=== PATIENT | female | born 1990 | race Caucasian/White ===

== ENCOUNTER → 2020-11-29 14:35 | Outpatient (BNVA) | payer SELFPAY | PROVIDERS: PCP Nurse Practitioner; Visit Provider Nurse Practitioner Women's Health | DX: N93.9 Abnormal uterine and vaginal bleeding, unspecified (principal); Z12.4 Encounter for screening for malignant neoplasm of cervix; R10.2 Pelvic and perineal pain | CPT/HCPCS: 84443; 84702; 88175 ==

== ENCOUNTER → 2020-12-03 10:33 | Outpatient (BNVA) | payer SELFPAY | PROVIDERS: PCP Nurse Practitioner; Visit Provider Obstetrics & Gynecology | DX: N93.9 Abnormal uterine and vaginal bleeding, unspecified (principal); R10.2 Pelvic and perineal pain | CPT/HCPCS: 76830 ==

== ENCOUNTER → 2021-06-13 16:40 | Outpatient (BNVA) | payer SELFPAY | PROVIDERS: PCP Nurse Practitioner; Visit Provider Family Medicine | DX: J02.9 Acute pharyngitis, unspecified (principal) | CPT/HCPCS: 87071; 87880 ==

== ENCOUNTER 2024-06-28 05:28 | Inpatient (IN) | payer MEDICAID, SELFPAY ==
[2024-06-28] VITALS (15 sets, daily range): BP systolic 126–154; BP diastolic 70–93; PULSE 74–99; RESP 16; TEMP 36.1–36.8; O2SAT 98–100; BMI 29.7
[2024-06-28 06:14] LABS: Basophils % 0.2 %; Eosinophils % 0.4 %; Hematocrit 35.5 % (36-47); Lymphocytes # 1.5 10^3/uL (0.8-4.8); Lymphocytes % 15.9 %; Mean Corpuscular HGB Conc 32.1 g/dL (30-55); Mean Corpuscular Hemoglobin 28.2 pg (27-33); Mean Corpuscular Volume 87.9 fl (85-98); Mean Platelet Volume 11.6 fL (7.4-10.4); Monocytes # 0.8 10^3/uL (0.2-0.9); Monocytes % 8.2 %; Neutrophils # 7.16 10^3/uL (1.8-7.7); Nucleated Red Blood Cells % 0 %; Platelet Count 212 10^3/cmm (157-399); Red Blood Count 4.04 10^6/uL (3.85-5.65); Red Cell Distribution Width 15.8 % (12.1-15.1); White Blood Count 9.55 10^3/uL (3.29-11.43)
--- NOTE | 2024-06-28 08:06 | PM.OPHPUD ---
Labor & Delivery H&P Update Date of Procedure: June 28, 2024 Date H&P Performed: 06/23/24 Changes to previous documentation: Cervix dilated to 4 cm on upon admission to the hospital Admission Diagnosis: 34-year-old 2 para 1-0-0-1 at 40 weeks estimated gestational age Other information: The patient had an unremarkable . Her labs were also unremarkable. Her blood type is O+. Her antibody screen was negative. Her glucose screen was passed. She is rubella nonimmune. She is GBS negative. The remainder of her infectious disease profile was within normal limits. Related Problem List Diagnoses (1) 40 weeks gestation of : A&P Assessment and plan (1) 40 weeks gestation of : I anticipate routine labor and vaginal delivery. Status: Acute
--- NOTE | 2024-06-28 09:08 | PM.DELIVERY ---
Delivery Note: Date of delivery: June 28, 2024 Pre-delivery diagnoses: 34-year-old 4 para 1-0-2-1 at 40 weeks presenting in active labor. Post-delivery diagnoses: Status post vacuum-assisted vaginal delivery Procedure: Vacuum-assisted vaginal delivery Delivering Physician: Ifeanyi Reid Estimated blood loss (mL): 100 Pre-Delivery Course: The patient presented to the hospital in active labor. She progressed to complete without difficulty. Delivery: DELIVERY: The patient progressed to complete without difficulty. As the patient was pushing, heart tones began to demonstrate decelerations. As a result the vacuum was used to assist in delivery. It was used during 1 contraction. There were no pop-off's. She ended up having persistent she delivered a female with a weight of 7 pounds 5 ounces with Apgars of 7, 9. The baby was delivered from the ERIC position and placed on the mother's abdomen. The cord was then clamped and cut. There was a nuchal cord x 1 which was easily reduced prior to delivery of the shoulders. There was no meconium. The placenta and 3 vessel cord were delivered intact shortly thereafter. The perineum and vaginal vault were carefully examined. No lacerations were noted. Both the mother and the baby were in stable condition. History History History 4 Term 1 0 Miscarriages/Ectopic 2 Living Children 1 A&P Assessment and plan (1) 40 weeks gestation of : I anticipate routine care. (2) Vacuum-assisted vaginal delivery: Coding Level of Care Code Acute Code for Chg Fwd Diagnoses 40 weeks gestation of Z3A.40 Vacuum-assisted vaginal delivery Z37.9
[2024-06-28] MEDS: dextrose 5%-lactated ringers 1,000 ML 125 ML IV (09:35)
[2024-06-28] MEDS: oxytocin 30 UNIT/500 ML BAG 600 UNIT IV (09:36)
[2024-06-28] MEDS: lidocaine 2% INJ 20 mL INJECTION (09:36)
--- NOTE | 2024-06-28 11:54 | PC.NURSE ---
Moved to room.
[2024-06-28] MEDS: benzocaine-menthol 78 gm Canister 1 SPRAY TOPICAL (13:19)
[2024-06-28] MEDS: ibuprofen 800 mg tablet PO ×2 (14:32→21:42)
[2024-06-28] MEDS: docusate sodium 100 mg Capsule PO (17:51)
[2024-06-28 18:39] LABS: Basophils % 0.2 %; Eosinophils % 0.2 %; Hematocrit 30.8 % (36-47); Lymphocytes # 1.1 10^3/uL (0.8-4.8); Lymphocytes % 9.1 %; Mean Corpuscular HGB Conc 32.1 g/dL (30-55); Mean Corpuscular Hemoglobin 28.1 pg (27-33); Mean Corpuscular Volume 87.5 fl (85-98); Mean Platelet Volume 11.2 fL (7.4-10.4); Monocytes # 0.9 10^3/uL (0.2-0.9); Neutrophils # 10.22 10^3/uL (1.8-7.7); Neutrophils % 83.3 %; Nucleated Red Blood Cells % 0 %; Platelet Count 199 10^3/cmm (157-399); Red Blood Count 3.52 10^6/uL (3.85-5.65); Red Cell Distribution Width 15.9 % (12.1-15.1); White Blood Count 12.28 10^3/uL (3.29-11.43)
[2024-06-28] MEDS: acetaminophen 500 mg Tablet PO (18:48)
[2024-06-28 18:55] LABS: Alanine Aminotransferase 12 U/L (0-33); Albumin Level 3.1 g/dL (3.5-5.2); Alkaline Phosphatase 182 U/L (35-105); Anion Gap 14.9 (5-19); Aspartate Amino Transferase 27 U/L (0-32); Blood Urea Nitrogen 9 mg/dL (6-20); Calcium 8.6 mg/dL (8.5-10.5); Carbon Dioxide 21 mmol/L (22-29); Chloride 104 mmol/L (98-107); Creatinine Clr Calc Pharmacy 146.3386; Globulin 3.2 g/dL (1.3-4.6); Glomerular Filtration Rate 115.1 mL/min (90-130); Glucose 111 mg/dL (65-115); Osmolality Calculated 281 mOsm/kg (285-295); Potassium 3.9 mmol/L (3.5-5.1); Sodium 136 mmol/L (136-145); Total Bilirubin 0.2 mg/dL (0.15-1.2); Total Protein 6.3 g/dL (6.6-8.7); Uric Acid 4.2 mg/dL (2.4-5.7)
[2024-06-29 04:35] VITALS: BP 120/80; PULSE 99; RESP 16; TEMP 36.8
--- NOTE | 2024-06-29 07:51 | PM.OBGYDC ---
Discharge Providers PROCUREMENT REPRESENTATIVE Date of Admission: 06/28/24 05:28 Date of Discharge: 06/29/24 Attending Provider at Admission: Ifeanyi Reid MD Attending Provider at Discharge: Ifeanyi Reid MD Primary Care Provider: LAQUITA Barnes Diagnoses at Discharge Discharge Diagnosis (1) 40 weeks gestation of : Status: Acute (2) Vacuum-assisted vaginal delivery: Status: Acute Reason for Visit Reason for Visit: Contractions Hospital Course Hospital Course The patient presented to the hospital in active labor. She had spontaneous rupture membranes. She progressed complete without difficulty. During her pushing process heart tones had some long decelerations. As result a vacuum was used. The baby was delivered while using the vacuum during 1 contraction. She had a second-degree posterior midline tear which was repaired in usual fashion. Her course was unremarkable. Her bleeding was within normal limits. She did have a couple of blood pressures that were elevated. They resolved without intervention. She breast-fed well. Her pain was well-controlled. Information Peripartum Data: Infant Delivery Method: Vaginal Physical Exam Narrative: The patient is alert. She appears comfortable. Her heart has a regular rate and rhythm with no murmurs appreciated. Lungs are clear to auscultation bilaterally. Her fundus is firm and below the umbilicus. History History History 4 Term 1 0 Miscarriages/Ectopic 2 Living Children 1 Discharge Data Studies Completed and Pending Laboratory Results WBC 12.28 10^3/uL (3.29-11.43) H 06/28/24 18:30 RBC 3.52 10^6/uL (3.85-5.65) L 06/28/24 18:30 Hgb 9.90 g/dL (11.27-16.99) L 06/28/24 18:30 Hct 30.8 % (36-47) L 06/28/24 18:30 MCV 87.5 fl (85-98) 06/28/24 18:30 MCH 28.1 pg (27-33) 06/28/24 18:30 MCHC 32.1 g/dL (30-55) 06/28/24 18:30 RDW 15.9 % (12.1-15.1) H 06/28/24 18:30 Plt Count 199 10^3/cmm (157-399) 06/28/24 18:30 MPV 11.2 fL (7.4-10.4) H 06/28/24 18:30 Neut % (Auto) 83.3 % 06/28/24 18:30 Lymph % (Auto) 9.1 % 06/28/24 18:30 [place] % (Auto) 7.0 % 06/28/24 18:30 Eos % (Auto) 0.2 % 06/28/24 18:30 Baso % (Auto) 0.2 % 06/28/24 18:30 Neut # (Auto) 10.22 10^3/uL (1.8-7.7) H 06/28/24 18:30 Lymph # (Auto) 1.1 10^3/uL (0.8-4.8) 06/28/24 18:30 [place] # (Auto) 0.9 10^3/uL (0.2-0.9) 06/28/24 18:30 Eos # (Auto) 0.0 10^3/uL (0.0-0.8) 06/28/24 18:30 Baso # (Auto) 0.0 10^3/uL (0.0-0.1) 06/28/24 18:30 Nucleated RBC % (auto) 0 % 06/28/24 18: Nucleated RBCs # 0.0 /100WBC 06/28/24 18:30 Sodium 136 mmol/L (136-145) 06/28/24 18:30 Potassium 3.9 mmol/L (3.5-5.1) 06/28/24 18:30 Chloride 104 mmol/L (98-107) 06/28/24 18:30 Carbon Dioxide 21 mmol/L (22-29) L 06/28/24 18:30 Anion Gap 14.9 (5-19) 06/28/24 18:30 BUN 9 mg/dL (6-20) 06/28/24 18:30 Creatinine 0.6 mg/dL (0.5-0.9) 06/28/24 18:30 GFR Calculation 115.1 mL/min (90-130) 06/28/24 18:30 Glucose 111 mg/dL (65-115) 06/28/24 18:30 Calculated Osmolality 281 mOsm/kg (285-295) L 06/28/24 18:30 Uric Acid 4.2 mg/dL (2.4-5.7) 06/28/24 18:30 Calcium 8.6 mg/dL (8.5-10.5) 06/28/24 18:30 Total Bilirubin 0.2 mg/dL (0.15-1.2) 06/28/24 18:30 AST 27 U/L (0-32) 06/28/24 18:30 ALT 12 U/L (0-33) 06/28/24 18:30 Alkaline Phosphatase 182 U/L (35-105) H 06/28/24 18:30 Total Protein 6.3 g/dL (6.6-8.7) L 06/28/24 18:30 Albumin 3.1 g/dL (3.5-5.2) L 06/28/24 18:30 Globulin 3.2 g/dL (1.3-4.6) 06/28/24 18:30 Urine Color Cancelled 06/28/24 20:07 Urine Appearance Cancelled 06/28/24 20:07 Urine pH Cancelled 06/28/24 20:07 Ur Specific [place] Cancelled 06/28/24 20:07 Urine Protein Cancelled 06/28/24 20:07 Urine Glucose (UA) Cancelled 06/28/24 20:07 Urine Ketones Cancelled 06/28/24 20:07 Urine Blood Cancelled 06/28/24 20:07 Urine Nitrate Cancelled 06/28/24 20:07 Urine Bilirubin Cancelled 06/28/24 20:07 Prot Sulfosalicylic Acd Cancelled 06/28/24 20:07 Urine Urobilinogen Cancelled 06/28/24 20:07 Ur Leukocyte Esterase Cancelled 06/28/24 20:07 Urine RBC Cancelled 06/28/24 20:07 Urine WBC Cancelled 06/28/24 20:07 Ur Squamous Epith Cells Cancelled 06/28/24 20:07 Ur Transition Epith Cell Cancelled 06/28/24 20:07 Ur Renal Epithelial Cell Cancelled 06/28/24 20:07 Calcium Oxalate Crystal Cancelled 06/28/24 20:07 Uric Acid Crystals Cancelled 06/28/24 20:07 Triple Phos Crystals Cancelled 06/28/24 20:07 Other Crystals Cancelled 06/28/24 20:07 Amorphous Sediment Cancelled 06/28/24 20:07 Urine Bacteria Cancelled 06/28/24 20:07 Hyaline Casts Cancelled 06/28/24 20:07 Fine Granular Casts Cancelled 06/28/24 20:07 Coarse Granular Casts Cancelled 06/28/24 20:07 RBC Casts Cancelled 06/28/24 20:07 Other Casts Cancelled 06/28/24 20:07 Urine Mucus Cancelled 06/28/24 20:07 Urine Trichomonas Cancelled 06/28/24 20:07 Urine Yeast Cancelled 06/28/24 20:07 Urine Sperm Cancelled 06/28/24 20:07 Ur Oval Fat Bodies Cancelled 06/28/24 20:07 U Random Total Protein Cancelled 06/28/24 20:07 Urine Creatinine Cancelled 06/28/24 20:07 Protein/Creatinin Ratio Cancelled 06/28/24 20:07 Blood Type O Positive 06/28/24 06:45 Rho(D) Type Rh positive 06/28/24 06:45 Antibody Screen Negative 06/28/24 06:45 Vitals Last Vital Signs Temp 98.3 F 06/29/24 04:35 Pulse 99 06/29/24 04:35 Resp 16 06/29/24 04:35 BP 120/80 06/29/24 04:35 Pulse Ox 99 06/28/24 20:36 O2 Del Method Room Air 06/29/24 04:35 Results Labs OB ([facility]): Blood Type O Positive 06/28/24 Antibody Screen Negative 06/28/24 Hct 30.8 % (36-47) L 06/28/24 Hgb 9.90 g/dL (11.27-16.99) L 06/28/24 Rho(D) Type Rh positive 06/28/24 Plt Count 199 10^3/cmm (157-399) 06/28/24 Uric Acid 4.2 mg/dL (2.4-5.7) 06/28/24 Discharge Plan Discharge Patient Disposition: Home Condition: Stable Prescriptions: New ibuprofen 800 mg Tablet 800 mg PO TID Qty: 45 0RF Continued [id number]-minerals 18-0.4 mg tablet 1 tab PO DAILY cholecalciferol (vitamin D3) 10 mcg (400 unit) capsule 10 mcg PO DAILY Discharge Orders: Discharge Order (Routine); Ordered 06/29/24 Ordered By: Ifeanyi Reid Referrals: Ifeanyi Reid MD [Physician] - 6 Weeks Discharge Diet: Usual diet Discharge Activity: Limit activity as instructed Patient Instructions: Depression (DC), Opioid Safety (DC), Preeclampsia and Eclampsia After Delivery (GEN), Hemorrhage (DC), OB Discharge Report, OB Food/Drug Interaction Guide, OB Care at Home, Opioid Safety, OB Vaginal Deliveries, Abnormal Bleeding Discharge Attestations PROCUREMENT REPRESENTATIVE Time Spent in Discharge Care*: less than 30 min Coding Level of Care Code Acute Code for Chg Fwd Diagnoses 40 weeks gestation of Z3A.40 Vacuum-assisted vaginal delivery Z37.9
[2024-06-29] MEDS: docusate sodium 100 mg Capsule PO (09:23)
[2024-06-29] MEDS: ibuprofen 800 mg tablet PO (09:23)
[2024-06-29] MEDS: PRENATAL VIT NO.130/IRON/FOLIC 1 EACH TABLET PO (09:23)
[2024-06-29 10:30] VITALS: BP 102/68; PULSE 98; RESP 16; TEMP 36.9; O2SAT 100
[2024-06-29 11:10] VITALS: BP 102/68; PULSE 16; RESP 98; TEMP 36.9; O2SAT 100
[2024-06-29] MEDS: measles,mumps,rubella pf Vial (w/diluent) 0.5 ML SUBCUT (13:06)
--- NOTE | 2024-06-29 13:06 | PC.NURSE ---
PATIENT REFUSED RUBELLA
== END 2024-06-29 11:10 | disposition home or self-care (01) | DRG 807 ==
LOC: OPOB 05:28 → OBGYN 05:28
PROVIDERS: Admitting Provider Family Medicine; PCP Nurse Practitioner; Visit Provider Family Medicine
DX: O76 Abnormality in fetal heart rate and rhythm complicating labor and delivery (principal); Z37.0 Single live birth; Z3A.40 40 weeks gestation of pregnancy; O69.81X0 Labor and delivery complicated by cord around neck, without compression, not applicable or unspecified
CPT/HCPCS: 59025; 59409; 80053; 84550; 85025; 86850; 86900; 90707; J2590; J7121